=== PATIENT | male | born 1965 | race Caucasian/White ===

== ENCOUNTER → 2018-03-11 | Outpatient (CLI) | payer OTHER | LOC: BMCIMAGING 14:22 | PROVIDERS: ATTEND Internal Medicine | DX: M25.572 Pain in left ankle and joints of left foot (principal); R60.0 Localized edema ==

== ENCOUNTER 2018-10-03 05:44 | Emergency (ER) | payer OTHER | END 2018-10-03 07:35 | disposition home or self-care (01) ==